=== PATIENT | female | born 1990 | race Caucasian/White ===

== ENCOUNTER 2018-12-17 10:10 | Emergency (ER) | payer OTHER ==
[2018-12-17] MEDS ORDERED: NORMAL SALINE 1000 ML 1,000 ML IV ONE (10:27)
[2018-12-17] MEDS ORDERED: ONDANSETRON HCL INJ/PF 4 MG/2 ML SDV IV ONE (10:27)
[2018-12-17] MEDS ORDERED: MORPHINE SULFATE 10 MG/ML INJ IV ONE (10:27)
--- NOTE | 2018-12-17 10:29 | ER Document Report ---
ED General - General Chief Complaint: Vag Bleeding, +preg <12wks Stated Complaint: VAGINAL BLEEDING Time Seen by Provider: 12/17/18 10:17 Primary Care Provider: SHAYNA BRIDGES DO [Primary Care Provider] - Follow up as needed Mode of Arrival: Medic Information source: Patient Notes: Patient is an otherwise healthy 20-year-old female who presents the emergency department via EMS for vaginal bleeding. Patient reports that she is 12 weeks , she is a G3, P2 and states that while she was out shopping she had a says sudden gush of bright red blood from the vagina. She reports low abdominal cramping. She denies any passage of any clots. Denies any other symptoms to include nausea, vomiting, diarrhea or fever. Patient reports she is B+. - Related Data Allergies/Adverse Reactions: No Known Allergies Allergy (Verified 12/17/18 10:39) Past Medical History - General Information source: Patient - Social History Smoking Status: Former Smoker Frequency of alcohol use: None Drug Abuse: None Family History: Reviewed & Not Pertinent Patient has suicidal ideation: No Patient has homicidal ideation: No Renal/ Medical History: Denies: Hx Peritoneal Dialysis Psychiatric Medical History: Reports: Hx Depression Past Surgical History: Reports: Hx Section - Immunizations Immunizations up to date: Yes Review of Systems - Review of Systems Constitutional: No symptoms reported EENT: No symptoms reported Cardiovascular: No symptoms reported Respiratory: No symptoms reported Gastrointestinal: Abdominal pain - Mild cramping Genitourinary: No symptoms reported Female Genitourinary: Vaginal bleeding Musculoskeletal: No symptoms reported Skin: No symptoms reported Hematologic/Lymphatic: No symptoms reported Neurological/Psychological: No symptoms reported Physical Exam - Vital signs Vitals: Temp Pulse Resp BP Pulse Ox 98.1 F 84 16 129/72 H 100 12/17/18 10:16 12/17/18 10:16 12/17/18 10:16 12/17/18 10:16 12/17/18 10:16 - Notes Notes: PHYSICAL EXAMINATION: GENERAL: Well-appearing, well-nourished and in no acute distress. HEAD: Atraumatic, normocephalic. EYES: Pupils equal round and reactive to light, extraocular movements intact, conjunctiva are normal. ENT: Nares patent, oropharynx clear without exudates. Moist mucous membranes. NECK: Normal range of motion, supple without lymphadenopathy LUNGS: Breath sounds clear to auscultation bilaterally and equal. No wheezes rales or rhonchi. HEART: Regular rate and rhythm without murmurs ABDOMEN: Soft, nontender, nondistended abdomen. No guarding, no rebound. No masses appreciated. Female : Small amount of vaginal bleeding noted on vaginal examination. Musculoskeletal: Normal range of motion, no pitting or edema. No cyanosis. NEUROLOGICAL: Cranial nerves grossly intact. Normal speech, normal gait. Normal sensory, motor exams PSYCH: Normal mood, normal affect. SKIN: Warm, Dry, normal turgor, no rashes or lesions noted. Course - Re-evaluation Re-evalutation: Labs as recorded are unremarkable. Patient's blood type is B +, therefore no indication for RhoGam. Quantitative hCG appropriate with gestational age. Transvaginal ultrasound reveals a 11-week intrauterine with no other acute findings. No subchorionic hemorrhage. Patient did pass a large clot while she was down at ultrasound, this was retrieved and inspected and was sent to lab. This clot did not appear to be products of conception but rather appeared to be a blood clot. Patient will return in 48 hours for repeat quantitative hCG. Discussed pelvic rest with the patient. Discussed ED return precautions with the patient who verbalizes understanding of same. Patient's vital signs are stable at time of discharge. - Vital Signs Vital signs: Temp Pulse Resp BP Pulse Ox 98.3 F 85 16 115/54 L 100 12/17/18 13:50 12/17/18 13:50 12/17/18 13:50 12/17/18 13:50 12/17/18 13:50 - Laboratory Result Diagrams: 12/17/18 10:35 12/17/18 10:35 Laboratory results interpreted by me: 12/17/18 12/17/18 12/17/18 10:35 10:35 10:35 WBC 3.8 L Hgb 11.4 L Hct 33.2 L Creatinine 0.39 L Glucose 115 H Serum HCG, Qual POSITIVE H Beta HCG, Quant 87021.00 H Discharge - Discharge Clinical Impression: Vaginal bleeding affecting early Condition: Stable Disposition: HOME, SELF-CARE Additional Instructions: You has been evaluated today for an episode of vaginal bleeding during . The ultrasound showed an intrauterine with a heart rate of 160. Please rest over the next couple of days, return to the main lab in 48 hours for repeat blood work. Do not insert anything into the vagina. Please return to the emergency department if you develop worsening of the vaginal bleeding, you are bleeding through more than 1 pad per hour for 4 hours consecutively, you pass out or you develop any other symptom that is concerning to you. Please [facility] the appointment you [facility] with [facility], let them know you had blood work drawn here on Wednesday so they can pull up the results. Forms: Follow-Up Laboratory Testing Referrals: SHAYNA BRIDGES DO [Primary Care Provider] - Follow up as needed
[2018-12-17 11:07] LABS: ABSOLUTE EOSINOPHILS # (AUTO) 0.1 10^3/uL (0.0-0.6); ABSOLUTE LYMPHOCYTES (AUTO) 1.1 10^3/uL (0.5-4.7); ABSOLUTE MONOCYTES (AUTO) 0.4 10^3/uL (0.1-1.4); ABSOLUTE NEUT (AUTO) 2.3 10^3/uL (1.7-8.2); BASOPHILS % (AUTO) 0.2 % (0-2); EOSINOPHILS % (AUTO) 1.8 % (0-6); HEMATOCRIT 33.2 % (36.0-47.0); HEMOGLOBIN 11.4 g/dL (12.0-15.5); LYMPHOCYTES % (AUTO) 28.9 % (13-45); MEAN CORPUSCULAR HEMOGLOBIN 29.5 pg (27.0-33.4); MEAN CORPUSCULAR HGB CONC 34.2 g/dL (32.0-36.0); MEAN CORPUSCULAR VOLUME 86 fl (80-97); MONOCYTES % (AUTO) 10.4 % (3-13); PLATELET COUNT 294 10^3/uL (150-450); RED BLOOD COUNT 3.85 10^6/uL (3.72-5.28); RED CELL DISTRIBUTION WIDTH 12.3 % (11.5-14.0); SEGMENTED NEUTROPHILS % (AUTO) 58.7 % (42-78); TOTAL CELLS COUNTED % (AUTO) 100 %; WHITE BLOOD COUNT 3.8 10^3/uL (4.0-10.5)
[2018-12-17 11:22] LABS: ALANINE AMINOTRANSFERASE 14 U/L (9-52); ALBUMIN 4.1 g/dL (3.5-5.0); ALKALINE PHOSPHATASE 88 U/L (38-126); ANION GAP 12 (5-19); ASPARTATE AMINO TRANSFERASE 19 U/L (14-36); BILIRUBIN,DIRECT 0.1 mg/dL (0.0-0.4); BILIRUBIN,TOTAL 0.2 mg/dL (0.2-1.3); BLOOD UREA NITROGEN 11 mg/dL (7-20); CALCIUM 9.3 mg/dL (8.4-10.2); CARBON DIOXIDE 23 mmol/L (22-30); CHLORIDE 103 mmol/L (98-107); GLUCOSE 115 mg/dL (75-110); POTASSIUM 4.4 mmol/L (3.6-5.0); SODIUM 137.9 mmol/L (137-145); TOTAL PROTEIN 6.8 g/dL (6.3-8.2)
--- NOTE | 2018-12-17 13:40 | RADIOLOGY REPORT (SQ) ---
EXAM DESCRIPTION: U/S OB TRANSVAGINAL W/O DOP COMPLETED DATE/TIME: 12/17/2018 1:18 pm REASON FOR STUDY: + preg 12 weeks, vaginal bleeding COMPARISON: None. TECHNIQUE: Transvaginal grayscale images acquired of the pelvis. All images stored on PACs. bHCG: Not available. CLINICAL DATES: 11 weeks 0 days LIMITATIONS: None. FINDINGS: FETUS: Single Living intrauterine . ULTRASOUND EGA: 11 weeks 6 days ULTRASOUND RONALD: 07/02/2019 EFW: Not applicable less than 20 weeks. CRL: 5.1 cm FHR: 163 beats per minute. SUBCHORIONIC BLEED: No. SIZE OF BLEED: Not applicable. UTERUS: Measures 12.1 x 5.5 x 9.4 cm CERVICAL LENGTH: 4.2 cm. Closed. RIGHT ADNEXA: Ovary not identified due to poor acoustical window. No adnexal free fluid. No adnexal masses. LEFT ADNEXA: Ovary not identified due to poor acoustical window. No adnexal free fluid. No adnexal masses. FREE FLUID: None. IMPRESSION: LIVING INTRAUTERINE . EGA 11 WEEKS 6 DAYS. Trimester of : First - 0 to 13 weeks. TECHNICAL DOCUMENTATION: JOB ID: [id number] [employer]- All Rights Reserved rev Reading location - IP/workstation name: [email or web address]
[2018-12-17 13:54] VITALS: BP 115/54
== END 2018-12-17 13:50 | disposition home or self-care (01) ==
LOC: ER 10:10
DX: O20.9 Hemorrhage in early pregnancy, unspecified (principal); Z3A.12 12 weeks gestation of pregnancy
CPT/HCPCS: 99284; 96360; 86900; 86901; 36415; 84702; 84703; 85025; 80053; 88305 ×2; 76817; J7030

== ENCOUNTER → 2018-12-19 | Outpatient (CLI) | payer OTHER | LOC: LAB 08:53 | PROVIDERS: ATTEND Nurse Practitioner | DX: O46.90 Antepartum hemorrhage, unspecified, unspecified trimester (principal) | CPT/HCPCS: 36415; 84702 ==

== ENCOUNTER 2019-06-18 10:32 | Outpatient (CLI) | payer OTHER ==
[2019-06-18 11:30] LABS: APPEARANCE,URINE CLOUDY; BILIRUBIN,URINE NEGATIVE (NEGATIVE); COLOR,URINE AMBER; GLUCOSE, URINE NEGATIVE (NEGATIVE); KETONES,URINE NEGATIVE (NEGATIVE); LEUKOCYTE ESTERASE,URINE SMALL (NEGATIVE); NITRITE,URINE NEGATIVE (NEGATIVE); PROTEIN,URINE 100 mg/dL (NEGATIVE); URINE SPECIFIC GRAVITY 1.019; UROBILINOGEN,URINE NEGATIVE mg/dL (<2.0)
[2019-06-18 11:48] LABS: URINE AMPHETAMINES SCREEN NEGATIVE; URINE BARBITURATES SCREEN NEGATIVE; URINE BENZODIAZEPINES SCREEN NEGATIVE; URINE COCAINE SCREEN NEGATIVE; URINE MARIJUANA (THC) SCREEN NEGATIVE; URINE METHADONE SCREEN NEGATIVE; URINE PHENCYCLIDINE SCREEN NEGATIVE
[2019-06-18 12:09] LABS: APPEARANCE,URINE SLIGHTLY-CLOUDY; BILIRUBIN,URINE NEGATIVE (NEGATIVE); COLOR,URINE YELLOW; GLUCOSE, URINE NEGATIVE (NEGATIVE); KETONES,URINE TRACE mg/dL (NEGATIVE); LEUKOCYTE ESTERASE,URINE NEGATIVE (NEGATIVE); NITRITE,URINE NEGATIVE (NEGATIVE); PROTEIN,URINE 30 mg/dL (NEGATIVE); URINE SPECIFIC GRAVITY 1.015; UROBILINOGEN,URINE NEGATIVE mg/dL (<2.0)
--- NOTE | 2019-06-18 13:34 | RADIOLOGY REPORT (SQ) ---
EXAM DESCRIPTION: U/S OB LIMITED COMPLETED DATE/TIME: 06/18/2019 1:19 pm REASON FOR STUDY: vaginal bleeding 38wks, placental/ wellbeing COMPARISON: None. TECHNIQUE: Limited transabdominal grayscale ultrasound for evaluation of specific requested obstetri kary parameters. LIMITATIONS: None. FINDINGS: CERVICAL LENGTH: 3.5 cm closed. SERG: 14.4 cm. FHR: 132 beats per minute. PRESENTATION: Cephalic. PLACENTA: Posterior ANATOMY: Not assessed OTHER: 38 weeks IMPRESSION: LIMITED OBSTETRICAL ULTRASOUND WITH MEASURED PARAMETERS DELINEATED ABOVE. Trimester of : Third trimester - 28 weeks to delivery. TECHNICAL DOCUMENTATION: JOB ID: [id number] [employer]- All Rights Reserved Reading location - IP/workstation name: [email or web address]
== END 2019-06-18 13:59 | disposition home or self-care (01) ==
LOC: LC 10:32
PROVIDERS: ATTEND Obstetrics & Gynecology
PROC: 4A1HXCZ Monitoring of Products of Conception, Cardiac Rate, External Approach (ICD-10-PCS; principal; 2019-06-18)
DX: O46.93 Antepartum hemorrhage, unspecified, third trimester (principal); O23.43 Unspecified infection of urinary tract in pregnancy, third trimester; Z3A.38 38 weeks gestation of pregnancy
CPT/HCPCS: 59025; 76815; 80307; 81001; 81005; 87086

== ENCOUNTER 2019-07-01 21:00 | Inpatient (IN) | payer OTHER ==
[2019-07-01 21:35] LABS: APPEARANCE,URINE CLEAR; BILIRUBIN,URINE NEGATIVE (NEGATIVE); COLOR,URINE STRAW; GLUCOSE, URINE NEGATIVE (NEGATIVE); KETONES,URINE NEGATIVE (NEGATIVE); LEUKOCYTE ESTERASE,URINE NEGATIVE (NEGATIVE); NITRITE,URINE NEGATIVE (NEGATIVE); PROTEIN,URINE NEGATIVE (NEGATIVE); URINE SPECIFIC GRAVITY 1.014; UROBILINOGEN,URINE NEGATIVE mg/dL (<2.0)
[2019-07-01] MEDS ORDERED: NORMAL SALINE 250 ML IV PRN (21:59)
[2019-07-01] MEDS ORDERED: RINGERS SOLUTION,LACTATED 1,000 ML IV PRN (21:59)
[2019-07-01 22:04] LABS: URINE AMPHETAMINES SCREEN NEGATIVE; URINE BARBITURATES SCREEN NEGATIVE; URINE BENZODIAZEPINES SCREEN NEGATIVE; URINE COCAINE SCREEN NEGATIVE; URINE MARIJUANA (THC) SCREEN NEGATIVE; URINE METHADONE SCREEN NEGATIVE; URINE PHENCYCLIDINE SCREEN NEGATIVE
[2019-07-01] MEDS ORDERED: OXYTOCIN/NORMAL SALINE 20 UNIT/1,000 ML RTUINJ IV PRN (22:14)
[2019-07-01 22:50] LABS: ABSOLUTE EOSINOPHILS # (AUTO) 0.1 10^3/uL (0.0-0.6); ABSOLUTE LYMPHOCYTES (AUTO) 2.2 10^3/uL (0.5-4.7); ABSOLUTE MONOCYTES (AUTO) 0.8 10^3/uL (0.1-1.4); ABSOLUTE NEUT (AUTO) 7.7 10^3/uL (1.7-8.2); BASOPHILS % (AUTO) 0.2 % (0-2); EOSINOPHILS % (AUTO) 0.8 % (0-6); HEMATOCRIT 31.4 % (36.0-47.0); HEMOGLOBIN 10.3 g/dL (12.0-15.5); LYMPHOCYTES % (AUTO) 20.4 % (13-45); MEAN CORPUSCULAR HEMOGLOBIN 26.7 pg (27.0-33.4); MEAN CORPUSCULAR HGB CONC 32.9 g/dL (32.0-36.0); MEAN CORPUSCULAR VOLUME 81 fl (80-97); MONOCYTES % (AUTO) 7.2 % (3-13); PLATELET COUNT 312 10^3/uL (150-450); RED BLOOD COUNT 3.86 10^6/uL (3.72-5.28); SEGMENTED NEUTROPHILS % (AUTO) 71.4 % (42-78); TOTAL CELLS COUNTED % (AUTO) 100 %; WHITE BLOOD COUNT 10.8 10^3/uL (4.0-10.5)
[2019-07-02] MEDS ORDERED: OXYTOCIN 10 UNIT/ML VIAL ONE (00:04)
[2019-07-02] MEDS ORDERED: LIDOCAINE 1% INJ-PF (10 MG/ML) 30 ML SDV ONE (00:05)
[2019-07-02] MEDS ORDERED: MISOPROSTOL 0.2 MG TABLET ONE (00:05)
[2019-07-02] MEDS ORDERED: OXYTOCIN/NORMAL SALINE 20 UNIT/1,000 ML RTUINJ ONE (00:05)
--- NOTE | 2019-07-02 00:21 | Admission Physical ---
Datetime Report Generated by CPN: 07/02/2019 00:21 CURRENT ADMISSION Chief Complaint: Uterine Contractions; Suspected Ruptured Membranes Indication for Induction: Not Applicable Admit Impression : Term, Intrauterine ; Admit Plan: Admit to Unit; Initiate Labor Protocol; Initiate Protocol ALLERGIES Medication Allergies: No Medication Allergies: No Known Allergies (12/17/2018) Latex: No Latex Allergies Food Allergies: na Environmental Allergies: na OBSTETRICAL HISTORY EDC: 07/02/2019 00:00 : 3 Para: 2 Term: 2 : 0 SAB: 0 IAB: 0 Ectopic: 0 Livin Cesareans: 1 VBACs: 1 Multiple Births: 0 Gestational Diabetes: Unknown Rh Sensitization: No Incompetent Cervix: No KORTNEY: No Infertility: No ART Treatment: No Uterine Anomaly: No IUGR: No Hx Previous C/S: Yes Macrosomia: No Hx Loss/Stillborn: No PIH: No Hx : No Placenta Previa/Abruption: No Depression/PP Depression: No PTL/PROM: No Post Hemorrhage: Yes Current Procedures: Ultrasound; NST Obstetrical History Comments: G1- term delivery c/s pushed for 4hrs, pre-e, blood transfusion G2- , broken tailbone G3- current , pt was told that she had GDM, pt states that she checked bs for a week 4 times day. Pt states that all sugars were normal and they stated that she no longer had GDM and no longer needed to check BG. SEE RECORDS Alcohol: No Marijuana : No Cocaine: No Other Illicit Drugs: No Cigarettes: Former Smoker. 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[employer] Surgery: No Heart Disease: Yes Hosp/Surgery: Yes Autoimmune Disorder: No Anesthetic Complications: No Kidney Disease: No Abnormal Pap Smear: No Neuro/Epilepsy: No Psychiatric Disorders: No Other Medical Diseases: No Hepatitis/Liver Disease: No Significant Family History: No Varicosities/Phlebitis: No Trauma/Violence : No Thyroid Dysfunction: No Medical History Comments: pre-e with first , anxiety, pt states that she had blood transfusion with 1st c/s _ childbirth INFECTIOUS HISTORY Gonorrhea: No Genital Herpes: No Chlamydia: No Tuberculosis: No Syphilis: No Hepatitis: No HIV/AIDS Exposure: No Rash or Viral Illness: No HPV: No PHYSICAL EXAM General: Normal HEENT: Normal Neurologic: Normal Thyroid: Normal Heart: Normal Lungs: Normal Breast: Normal Back: Normal Abdomen: Normal Genitourinary Exam: Normal Extremities: Normal DTRs: Normal Pelvic Type: Adequate Vital Signs: Reviewed VAGINAL EXAM Dilatation: 5 Effacement: 90 Station: -1 MEMBRANES Pooling: Negative Membranes: Ruptured Amniotic Fluid Color: Clear FETUS A EGA: 40.0 Monitoring: External US FHR- Baseline: 130 Variability: Moderate 6-25bpm Accelerations: 15X15 Decelerations: None FHR Category: Category I Admit Comment: Forebag ruptured. clear fluid. PLANS FOR LABOR AND DELIVERY Pain Management: Natural; Medications; Epidural Feeding Preference: Breast Benefit of Breast Feed Discussed: Yes Circumcision: Yes INFORMED CONSENT Signature: with User ID: [email or web address]
[2019-07-02] MEDS ORDERED: METHYLERGONOVINE MALEATE INJ/PF 0.2 MG/1 ML AMPULE ONE (01:01)
[2019-07-02] MEDS ORDERED: CARBOPROST TROMETHAMINE INJ 250 MCG/1 ML AMPULE ONE (01:01)
[2019-07-02] MEDS ORDERED: LOPERAMIDE HCL 2 MG CAPSULE ONE (01:03)
[2019-07-02] MEDS ORDERED: DIPH/PERTUSS(ACELL)/TETANUS VAC/PF 0.5 ML SYR (>=10YO) IM PRN (01:36)
[2019-07-02] MEDS ORDERED: OXYTOCIN/NORMAL SALINE 20 UNIT/1,000 ML RTUINJ IV PRN (01:36)
[2019-07-02] MEDS ORDERED: MEASLES,MUMPS&RUBELLA VACC/PF 0.5 ML VIAL SUBCUT PRN (01:36)
[2019-07-02] MEDS ORDERED: DIBUCAINE 1% OINTMENT 56 GM TP PRN (01:36)
[2019-07-02] MEDS ORDERED: BENZOCAINE/MENTHOL AEROSOL SPRAY 56 ML TOP PRN (01:36)
[2019-07-02] MEDS ORDERED: ZOLPIDEM TARTRATE 5 MG TABLET PO PRN (01:36)
[2019-07-02] MEDS ORDERED: ACETAMINOPHEN WITH CODEINE #3 TABLET PO PRN ×2 (01:36)
--- NOTE | 2019-07-02 01:42 | Warning Signs in Babies ---
VOD Warning Signs Datetime Report Generated by [facility]: 07/02/2019 01:41 VOD#608 -Warning Signs in Babies: Needs to be viewed. (06/18/2019 10:34:Valerie Leblanc RN)
[2019-07-02] MEDS ORDERED: IBUPROFEN 800 MG TABLET ONE (01:44)
--- NOTE | 2019-07-02 04:29 | Delivery Summary ---
Del Sum A-C Datetime Report Generated by CPN: 07/02/2019 04:29 DELIVERY PERSONNEL DELIVERY PERSONNEL: [id number] Delivery Doctor:: Cleo Moran MD Labor and Delivery Nurse:: Valerie Leblanc RN Nursery Nurse:: Desirae Murray RN Ent Nurse/FOOD SERVICE LEAD: Sadie Green, ST MATERNAL INFORMATION Delivery Anesthesia: None Medications After Delivery: Pitocin Bolus-Please Comment; Cytotec 1000mcg Per Rectum/Vagina Meds After Delivery Comment: Pitocin 20 units/1000 ml NS bolus following placenta Estimated Blood Loss (ml): 200 Maternal Complications: None LABOR SUMMARY EDC: 07/02/2019 00:00 No. Babies in Womb: 1 Attempted: Yes Labor Anesthesia: None LABOR INFORMATION Reason for Induction: Not Applicable Onset of Labor: 07/01/2019 23:55 Complete Dilatation: 07/02/2019 01:06 Oxytocin: N/A Group B Beta Strep: negative Antibiotics # of Doses: N/A Antibiotics Time of Last Dose: N/A Name of Antibiotic Given: N/A Steroids Given: None Reason Steroids Not Administered: Not Applicable MEMBRANES Membranes Rupture Method: Spontaneous Rupture of Membranes: 07/01/2019 20:30 Length of Rupture (hr): 4.98 Amniotic Fluid Color: Clear Amniotic Fluid Amount: Small Amniotic Fluid Odor: Normal STAGES OF LABOR Stage 1 hr: 1 Stage 1 min: 11 Stage 2 hr: 0 Stage 2 min: 23 Stage 3 hr: 0 Stage 3 min: 3 Total Time in Labor hr: 1 Total Time in Labor min: 37 VAGINAL DELIVERY Episiotomy: None Laceration #1: None Laceration Extension #1: N/A Laceration Repair: Not Applicable Sponge Count Correct: N/A Sharps Count Correct: N/A CSECTION DELIVERY Primary Indication: N/A Secondary Indication: N/A CSection Incidence: N/A Labor: N/A Elective: N/A CSection Incision: N/A BABY A INFORMATION Infant Delivery Date/Time: 07/02/2019 01:29 Method of Delivery: Vaginal Born in Route : No : Successful Forceps: N/A Vacuum Extraction: N/A Shoulder Dystocia : Yes PRESENTATION/POSITION BABY A Presentation: Cephalic Cephalic Presentation: Vertex Vertex Position: Left Occipital Anterior Breech Presentation: N/A PLACENTA INFORMATION BABY A Placenta Delivery Time : 07/02/2019 01:32 Placenta Method of Delivery: Spontaneous Placenta Status: Delivered SCORES BABY A Heart Rate 1 min: >100 bpm Resp Effort 1 min: Good Cry Reflex Irritability 1 min: Cough or Sneeze or Pulls Away Muscle Tone 1 min: Active Motion Color 1 min: Blue/Pale Resuscitation Effort 1 min: Tactile Stimulation SCORE 1 MIN: 8 Heart Rate 5 min: >100 bpm Resp Effort 5 min: Good Cry Reflex Irritability 5 min: Cough or Sneeze or Pulls Away Muscle Tone 5 min: Active Motion Color 5 min: Body [place], Extremities Blue Resuscitation Effort 5 min: Tactile Stimulation SCORE 5 MIN: 9 INFANT INFORMATION BABY A Gestational Age at Delivery: 40.0 Gestational Status: Full Term- 39- 40.6 Weeks Outcome : Liveborn Condition : Stable Infant Sex: Male IDENTIFICATION BABY A Verification Date/Time: 07/02/2019 02:06 ID Band Number: [id number] Mother's Name Verified: Yes RN Verifying : Fede Cochran, RN Additional Verifying Personnel: Ari Blank RN WEIGHT/LENGTH BABY A Birthweight (gm): 3125 Infant Weight (lb): 6 Infant Weight (oz): 14 Infant Length (in): 20.50 Length (cm): 52.07 CORD INFORMATION BABY A No. Cord Vessels: 3 Nuchal Cord : Around Neck x1, Loose Nuchal Cord- Other: compound hand Cord Blood Taken: Yes-For Storage (Mom's Blood type +) ASSESSMENT BABY A Infant Complications: Other Infant Complications- Other: Right compound hand Infant Respirations: Appears Normal Skin to Skin: Yes Compliance Examiner/ALS Called : No Care By: Esteban Trevor RN Transferred To: Remains with Mother BABY B INFORMATION : N/A SIGNATURES Signature: with User ID: [email or web address]
[2019-07-02] MEDS: IBUPROFEN 800 MG TABLET PO SCH ×3 (05:12→21:47)
[2019-07-02] MEDS: ACETAMINOPHEN 325 MG TABLET PO PRN ×2 (05:49→13:24)
[2019-07-02] MEDS: PRENATAL VITAMIN W DHA CAPSULE PO SCH (09:55)
[2019-07-02] MEDS: FERROUS SULFATE 325 MG TABLET PO SCH ×2 (09:55→18:44)
[2019-07-02] MEDS: DOCUSATE SODIUM 100 MG CAPSULE PO SCH ×2 (09:55→18:44)
[2019-07-02] MEDS: SENNOSIDES/DOCUSATE 8.6-50 MG 1 EACH TABLET PO SCH (09:55)
--- NOTE | 2019-07-02 10:03 | PDOC PROGRESS REPORT ---
Subjective-OB Progress Note for:: 07/02/19 Subjective: Doing well, due date was today, sons at BS, Physical Exam (OB) Vital Signs: Temp Pulse Resp BP Pulse Ox 97.5 F 83 16 117/61 99 07/02/19 08:11 07/02/19 08:11 07/02/19 08:11 07/02/19 08:11 07/02/19 08:11 Intake & Output 07/01/19 07/02/19 07/03/19 06:59 06:59 06:59 Weight 79.7 kg - Lochia Lochia Amount: Scant < 10 ml Lochia Color: Rubra/Red - Abdomen Description: Tender, Soft Hernia Present: No Fundal Description: Firm, Midline Fundal Height: u/u - u/2 Objective-Diagnostic Laboratory: 07/01/19 22:20 07/01/19 07/01/19 07/01/19 21:25 22:20 22:20 WBC 10.8 H RBC 3.86 Hgb 10.3 L Hct 31.4 L MCV 81 MCH 26.7 L MCHC 32.9 RDW 14.0 Plt Count 312 Seg Neutrophils % 71.4 Urine Color STRAW Urine Appearance CLEAR Urine pH 7.0 Ur Specific [place] 1.014 Urine Protein NEGATIVE Urine Glucose (UA) NEGATIVE Urine Ketones NEGATIVE Urine Blood NEGATIVE Urine Nitrite NEGATIVE Ur Leukocyte Esterase NEGATIVE Blood Type B POSITIVE Antibody Screen NEGATIVE Assessment and Plan(PN) - Assessment and Plan (1) Delivery normal Is this a current diagnosis for this admission?: Yes - Time Spent with Patient Time with patient: Less than 15 minutes Medications reviewed and adjusted accordingly: Yes - Disposition Anticipated Discharge: Home Within: within 24 hours
[2019-07-03] MEDS: ACETAMINOPHEN 325 MG TABLET PO PRN ×2 (05:03→14:25)
[2019-07-03] MEDS: IBUPROFEN 800 MG TABLET PO SCH ×3 (05:04→21:25)
--- NOTE | 2019-07-03 09:16 | PDOC PROGRESS REPORT ---
Subjective-OB Progress Note for:: 07/03/19 Subjective: Doing well, no c/o Physical Exam (OB) Vital Signs: Temp Pulse Resp BP Pulse Ox 97.8 F 74 14 108/54 L 99 07/03/19 07:25 07/03/19 07:25 07/03/19 07:25 07/03/19 07:25 07/03/19 07:25 Intake & Output 07/02/19 07/03/19 07/04/19 06:59 06:59 06:59 Weight 79.7 kg - PIH/Pre-Eclampsia DTR's: 1 + Clonus: Negative Headache: Absent Epigastric Pain: No Visual Changes: No - Lochia Lochia Amount: Scant < 10 ml Lochia Color: Rubra/Red - Abdomen Description: Soft, Round Hernia Present: No Fundal Description: Firm, Midline Fundal Height: u/u - u/2 Objective-Diagnostic Laboratory: 07/01/19 22:20 Assessment and Plan(PN) - Assessment and Plan (1) Delivery normal Is this a current diagnosis for this admission?: Yes - Time Spent with Patient Time with patient: Less than 15 minutes Medications reviewed and adjusted accordingly: Yes - Disposition Anticipated Discharge: Home Within: within 24 hours
[2019-07-03] MEDS: DOCUSATE SODIUM 100 MG CAPSULE PO SCH ×2 (11:43→17:54)
[2019-07-03] MEDS: PRENATAL VITAMIN W DHA CAPSULE PO SCH (11:43)
[2019-07-03] MEDS: FERROUS SULFATE 325 MG TABLET PO SCH ×2 (11:43→17:54)
[2019-07-03] MEDS: SENNOSIDES/DOCUSATE 8.6-50 MG 1 EACH TABLET PO SCH (11:43)
[2019-07-04] MEDS: ACETAMINOPHEN 325 MG TABLET PO PRN (01:42)
[2019-07-04] MEDS: IBUPROFEN 800 MG TABLET PO SCH (05:23)
[2019-07-04 08:13] VITALS: BP 124/81
[2019-07-04] MEDS: FERROUS SULFATE 325 MG TABLET PO SCH (09:09)
[2019-07-04] MEDS: PRENATAL VITAMIN W DHA CAPSULE PO SCH (09:09)
[2019-07-04] MEDS: DOCUSATE SODIUM 100 MG CAPSULE PO SCH (09:09)
[2019-07-04] MEDS: SENNOSIDES/DOCUSATE 8.6-50 MG 1 EACH TABLET PO SCH (09:09)
--- NOTE | 2019-07-04 10:24 | PDOC DISCHARGE SUMMARY ---
Final Diagnosis Discharge Date: 07/04/19 - PP Day #2, doing well, no complaints, B+, Rubella immune, x 2 now - Final Diagnosis (1) (vaginal after ) Is this a current diagnosis for this admission?: Yes (2) Normal course Is this a current diagnosis for this admission?: Yes (3) Delivery normal Is this a current diagnosis for this admission?: Yes Discharge Data - Discharge Medication Prescriptions: Ibuprofen [Motrin 800 mg Tablet] 800 mg PO Q8 #60 tablet Home Medications: Vit,Calc76/Iron/Folic [Prenatabs Rx Tablet] 1 tab PO DAILY 06/18/19 Ibuprofen [Motrin 800 mg Tablet] 800 mg PO Q8 #60 tablet 07/04/19 Reason(s) for Admission: Onset of Labor Procedures: NST, Ultrasound Intrapartum Procedure(s): Spontaneous Vaginal Delivery - Diagnosis Test Laboratory: Temp Pulse Resp BP Pulse Ox 97.7 F 85 12 124/81 100 07/04/19 07:46 07/04/19 07:46 07/04/19 07:46 07/04/19 07:46 07/04/19 07:46 07/01/19 07/01/19 21:25 22:20 RBC 3.86 Hgb 10.3 L Hct 31.4 L Urine Opiates Screen NEGATIVE - Discharge information/Instructions Discharge Activity: Activity As Tolerated, No Lifting Over 10 Pounds, Pelvic Rest Discharge Diet: As Tolerated, Regular Disposition: HOME, SELF-CARE Follow [facility] with: [facility] in: 4, Weeks
== END 2019-07-04 12:24 | disposition home or self-care (01) | DRG 807 ==
LOC: LC 21:00 → LR 21:55 → 2S 07-02 03:32
PROVIDERS: ADMIT Obstetrics & Gynecology; ATTEND Obstetrics & Gynecology
PROC: 10E0XZZ Delivery of Products of Conception, External Approach (ICD-10-PCS; principal; 2019-07-02)
DX: O34.211 Maternal care for low transverse scar from previous cesarean delivery (principal); Z37.0 Single live birth; N85.8 Other specified noninflammatory disorders of uterus; O24.420 Gestational diabetes mellitus in childbirth, diet controlled; O66.0 Obstructed labor due to shoulder dystocia; O69.81X0 Labor and delivery complicated by cord around neck, without compression, not applicable or unspecified; O32.2XX0 Maternal care for transverse and oblique lie, not applicable or unspecified; Z3A.40 40 weeks gestation of pregnancy
CPT/HCPCS: 36415; 80307; 81005; 84112; 85025; 86592; 86850; 86900; 86901; 86920; 94760; J2210; J2590; J3490